=== PATIENT | male | born 1985 | race African-American/Black ===

== ENCOUNTER 2024-07-22 11:14 | Emergency (ER) | payer MEDICAID ==
[2024-07-22 11:18] VITALS: TEMP 97.2
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
[2024-07-22] MEDS ORDERED: Zofran 4 MG/2 ML VIAL ONE (12:00)
[2024-07-22] MEDS ORDERED: OFIRMEV 100 ML IV ONE (12:00)
[2024-07-22] MEDS ORDERED: Sodium Chloride 0.9% 1000 ML 1,000 ML ONE (12:00)
[2024-07-22] MEDS: OFIRMEV 1,000 MG/100 ML ML IV ONE (12:01)
[2024-07-22] MEDS: Zofran 4 MG/2 ML VIAL IV ONE (12:01)
[2024-07-22] MEDS: Sodium Chloride 0.9% 1000 ML 1,000 ML IV STA (12:01)
[2024-07-22 12:09] LABS: BASOPHIL % 0.4 % (0.2-1.2); Basophil (Absolute #) 0.04 x10^3/uL (0.01-0.08); Eosinophil % 1.5 % (0.8-7.0); Eosinophil (Absolute #) 0.15 x10^3/uL (0.04-0.54); Hematocrit 39.4 % (40.1-51.0); Hemoglobin 13.5 g/dL (13.7-17.5); IMMATURE GRAN # 0.02 x10^3u/L (0.001-0.031); IMMATURE GRAN % 0.2 % (0.001-0.429); Lymphocyte (Absolute #) 1.58 x10^3/uL (1.32-3.57); Lymphocytes % 15.6 % (21.8-53.1); Mean Cell Volume 85.5 fL (79.0-92.2); Mean Corpuscular Hemoglobin 29.3 pg (25.7-32.2); Mean Corpuscular Hgb Concent. 34.3 g/dL (32.3-36.5); Mean Platelet Volume 11.1 fL (9.4-12.4); Monocyte (Absolute #) 0.53 x10^3/uL (0.30-0.82); Monocytes % 5.2 % (5.3-12.2); Neutrophil % 77.1 % (34.0-67.9); Platelet Count 248 x10^3/uL (163-337); Red Blood Count 4.61 x10^6/uL (4.63-6.08); Red Cell Distribution Width 13.1 % (11.6-14.4); White Blood Count 10.1 x10^3/uL (4.23-9.07)
[2024-07-22 12:23] LABS: ALBUMIN 4.3 g/dL (3.5-5.0); ALKALINE PHOSPHATASE 71 U/L (38-126); AMYLASE 80 U/L (30-110); ANION GAP 13.3 MEQ/L (5-15); BLOOD UREA NITROGEN 13 mg/dL (9-20); CHLORIDE 107 mmol/L (98-107); Calcium 9.4 mg/dL (8.4-10.2); Carbon Dioxide 24 mmol/L (22-30); Creatinine 1 0.83 mg/dL (0.66-1.25); EST GLOMERULAR FILTRATION RATE 114.2 ML/MIN; ETHYL ALCOHOL < 10 mg/dL (0-10); Glucose 93 mg/dL (74-106); LIPASE 60 U/L (23-300); MAGNESIUM 1.9 mg/dL (1.6-2.3); Potassium 4.2 mmol/L (3.5-5.1); SGOT/AST 41 U/L (17-59); SGPT/ALT 37 U/L (0-50); SODIUM 140 mmol/L (135-145); Total Protein 7.3 g/dL (6.3-8.2)
--- NOTE | 2024-07-22 14:04 | XRAY ---
CLINICAL HISTORY: pain COMPARISON: None. TECHNIQUE: An axial non-contrast CT scan of the brain was performed from the skull base to the high parietal region. One of the following dose reduction techniques was utilized for this exam: Automated exposure control, adjustment of the mA and/or kV according to patient size, use of iterative reconstruction. CTDI: 53.92, DLP: 1044.86. FINDINGS: Brain Parenchyma: Normal attenuation of the cerebral hemispheres, cerebellum, and brainstem. No evidence of acute infarct, hemorrhage, or mass effect. No abnormal areas of hypo- or hyperattenuation. Ventricular System: Ventricles are normal in size and configuration. No evidence of hydrocephalus or ventricular enlargement. Subarachnoid Spaces: Normal sulci and cisterns. No evidence of subarachnoid hemorrhage or extra-axial fluid collections. Cerebellum and Brainstem: Normal size and signal. No masses, lesions, or areas of abnormal signal. Orbits: Normal appearance of the globes, optic nerves, and extraocular muscles. No evidence of orbital masses or abnormal density. Sinuses: Clear paranasal sinuses. No evidence of sinusitis or mucosal thickening. Minimally depressed left nasal bone fracture. Mastoid Air Cells: Clear mastoid air cells. No evidence of mastoiditis. Skull and Meninges: Normal skull morphology. IMPRESSION: Unremarkable CT of the head without contrast. Electronically Signed by: Deniec Johnston MD. (07/22/2024 14:00:04 EDT)
--- NOTE | 2024-07-22 14:29 | XRAY ---
CLINICAL HISTORY: pain COMPARISON: No previous studies are available for comparison. TECHNIQUE: A CT scan of the cervical spine was performed without the administration of intravenous contrast. Contiguous axial images were obtained from the skull base to the upper thoracic spine. Coronal and sagittal reformatted images were also reviewed. One of the following dose-reduction techniques was utilized for this exam. Automated exposure control, adjustment of the mA and/or kV according to patient size, and use of iterative reconstruction. FINDINGS: Vertebrae: Straightening of cervical lordosis mostly due to muscle spasm. The vertebral bodies are normal in height and alignment. No evidence of acute fracture or dislocation. The cortical and trabecular bone patterns are normal. No signs of lytic or sclerotic lesions. Normal configuration of the posterior elements. Intervertebral Discs: Discosteophytic bulges were noted at C5-C6 and C6-C7 indenting the anterior thecal sac. No spinal canal stenosis. The intervertebral disc spaces are preserved. No calcifications or ossifications were noted within the discs. Facet Joints: The facet joints are normal without evidence of dislocation, subluxation, or significant degenerative changes. Neural Foramina: The neural foramina are patent bilaterally at all levels. No evidence of foraminal narrowing or nerve root compression. Prevertebral Soft Tissues: The prevertebral soft tissues are normal in thickness without evidence of mass or abnormal fluid collection. Additional Findings: No other significant findings are noted in the visualized soft tissue structures or bony elements. IMPRESSION: 1. Straightening of cervical lordosis, mostly due to muscle spasms. 2. Discosteophytic bulges noted at C5-C6 and C6-C7 levels, no stenosis of neural foramina or spinal canal. 3. No evidence of acute fracture. Electronically Signed by: Denice Johnston MD. (07/22/2024 14:23:50 EDT)
--- NOTE | 2024-07-22 14:31 | XRAY ---
CLINICAL HISTORY: pain COMPARISON: None. TECHNIQUE: Non-contrast CT of the abdomen and pelvis was performed, with the following protocol: axial images, and reconstructed coronal and sagittal images. No intravenous contrast was administered. One of the following dose reduction techniques was utilized for this exam: Automated exposure control, adjustment of the mA and/or kV according to patient size, and use of iterative reconstruction. FINDINGS: Abdomen: Liver: Normal in size, shape, and density. No focal lesions, cysts, or masses were identified. Gallbladder and Biliary System: The gallbladder is normal in size and shape. No wall thickening, pericholecystic fluid, or gallstones were identified. Pancreas: Pancreatic head, body, and tail are visualized and appear normal in size and density. No pancreatic masses or calcifications were noted. Spleen: Normal in size, shape, and density. No splenic lesions or masses were identified. Kidneys and Adrenal Glands: Both kidneys are normal in size, shape, and position. Cortical thickness is within normal limits. No renal calculi or hydronephrosis. Adrenal glands are unremarkable. Appendix: The appendix shows no brendan appendiceal fat stranding, or appendicolith. No evidence of appendiceal abscess or perforation. Pelvis: Urinary Bladder: Normal in contour and wall thickness. No intraluminal lesions. Peritoneal and Retroperitoneal Structures: No free fluid or abnormal fluid collections were identified within the abdomen or pelvis. No lymphadenopathy was noted. Bowel: The rectum appears markedly distended with fecal matter, and the rest of the colon as well to a lesser extent. Bones and Soft Tissues: Pelvic bones and soft tissues are unremarkable. No fractures or abnormal masses were identified. IMPRESSION: The rectum appears markedly distended with fecal matter, and the rest of the colon as well to a lesser extent , fecal impaction is to be considered. Clinical correlation is recommended. Electronically Signed by: Denice Johnston MD. (07/22/2024 14:27:35 EDT)
[2024-07-22] MEDS ORDERED: MILK OF MAGNESIA 30 ML ONE (15:53)
[2024-07-22] MEDS ORDERED: CITROMA 296 ML ONE (15:54)
[2024-07-22] MEDS: CITROMA 296 ML PO ONE (15:55)
[2024-07-22] MEDS: MILK OF MAGNESIA 30 ML PO ONE (15:55)
[2024-07-22 16:02] VITALS: PULSE 78; RESP 18
[2024-07-22 16:04] LABS: Barbiturate,Urine NEGATIVE (NEGATIVE); Benzodiazepine,Urine NEGATIVE (NEGATIVE); Cocaine,Urine NEGATIVE (NEGATIVE); Methadone,Urine NEGATIVE (NEGATIVE); Opiate,Urine NEGATIVE (NEGATIVE); PCP,Urine NEGATIVE (NEGATIVE); THC,Urine POSITIVE (NEGATIVE)
[2024-07-22 16:07] LABS: Appearance Clear (Clear); Bilirubin Negative (Negative); Blood Negative (Negative); Epithelial Cells None Seen /HPF (None Seen); Glucose, Urine Negative (Negative); Ketones 40 (Negative); Leukocyte Esterase Negative (Negative); Nitrite Negative (Negative); Protein,Urine Dip 100 (Negative); RBC 0-2 /HPF (0-5); Specific Gravity >=1.030 (1.005-1.030)
[2024-07-22 16:14] LABS: Bacteria Rare /HPF (None Seen); Hyaline Casts None Seen /LPF (0-2); Sperm Few /HPF (None Seen)
[2024-07-22 16:34] LABS: Amphetamine,Urine POSITIVE (NEGATIVE)
[2024-07-22 16:44] VITALS: O2SAT 100
[2024-07-22 16:45] VITALS: BP 127/88
[2024-07-22 17:17] LABS: CHLAMYDIA DNA DETECTED (NEGATIVE); GC DNA Probe NOT DETECTED (NEGATIVE)
== END 2024-07-22 16:47 | disposition home or self-care (01) ==
LOC: ED 11:14
DX: S00.83XA Contusion of other part of head, initial encounter (principal); S13.4XXA Sprain of ligaments of cervical spine, initial encounter; Y35.99XA Legal intervention, means unspecified, unspecified person injured, initial encounter; R10.9 Unspecified abdominal pain; R11.2 Nausea with vomiting, unspecified; K59.00 Constipation, unspecified
CPT/HCPCS: 36000; 36415; 70450; 72125; 74176; 80053; 80307; 81001; 82077; 82150; 83690; 83735; 85025; 87491; 87591; 96360; 96365; 96374; 99284; J2405; L0120; A9270-GY